=== PATIENT | female | born 2000 | race Caucasian/White ===

== ENCOUNTER 2022-11-17 07:20 | Outpatient (CLI) | payer OTHER, SELFPAY ==
[2022-11-17 07:50] LABS: Basophils Percent Auto 0.5 % (0.2-1.2); Eosinophils Absolute Auto 0.2 K/mm3 (0-0.3); Eosinophils Percent Auto 2.1 % (0-4.4); Hematocrit 45.7 % (37.0-47.0); Hemoglobin 14.3 g/dL (12.0-15.0); Immature Granulocyte Absolute 0.02 K/mm3 (0.00-0.031); Immature Granulocyte Percent A 0.3 % (0-0.5); Mean Corpuscular HGB Conc 31.3 g/dl (32-36); Mean Corpuscular Hemoglobin 27.7 pg (26-34); Mean Corpuscular Volume 88.6 fl (80-100); Mean Platelet Volume 9.2 fl (7.4-10.4); Monocytes Absolute Auto 0.7 K/mm3 (0.1-0.6); Monocytes Percent Auto 9.6 % (2.6-8.5); Neutrophils Absolute Auto 4.4 K/mm3 (1.3-6.7); Neutrophils Percent Auto 56.5 % (45.5-73.1); Platelet Count Result 285 k/mm3 (150-375); Red Blood Count 5.16 M/mm3 (4.2-5.4); Red Cell Distribution Width 12.8 % (11.5-14.5); White Blood Count 7.7 K/mm3 (4.5-10.0)
[2022-11-17 08:04] LABS: Hemoglobin A1C 5.7 % (<5.7)
[2022-11-17 08:52] LABS: Cholesterol 166 mg/dL (0-200); HDL Direct 37 mg/dL; Triglycerides 211 mg/dL (<150)
[2022-11-17 09:00] LABS: Beta HCG Quantitative < 2.39 mIU/ML
[2022-11-17 09:03] LABS: LDL Cholesterol Direct 92 mg/dL
[2022-11-17 12:11] LABS: Free T4 Free Thyroxine Reflex 1.18 ng/dL (0.78-2.19)
[2022-11-17 13:13] LABS: Total Triiodothyronine (T3) 1.85 NG/ML (0.97-1.69)
[2022-11-22 19:51] LABS: FSH 8.5 mIU/mL (***); Progesterone 0.5 ng/mL (***); Prolactin 10.3 ng/mL (***)
[2022-11-24 14:50] LABS: Anti Mullerian Hormone,Female 7.01 ng/mL (1.02-14.63)
[2022-11-24 19:14] LABS: DHEA-Sulfate 225 mcg/dL (51-321)
[2022-11-24 19:35] LABS: Insulin Level Total 27.2 uIU/mL (<=19.6)
[2022-11-25 16:12] LABS: Testosterone Free 9.1 pg/mL (0.1-6.4); Testosterone Total 41 ng/dL (2-45)
[2022-11-28 01:27] LABS: Estradiol, Ultrasensitive 31 pg/mL
[2022-12-05 07:59] LABS: Reference Lab Test Result 26.6
== END 2022-11-17 07:21 | disposition home or self-care (01) ==
LOC: ANHLAB 07:22
PROVIDERS: Visit Provider Obstetrics & Gynecology
DX: N92.6 Irregular menstruation, unspecified (principal); E66.01 Morbid (severe) obesity due to excess calories
CPT/HCPCS: 36415; 80061; 82627; 82670; 83001; 83036; 83498; 83525; 84144; 84146; 84402; 84403; 84439; 84443; 84480; 84702; 85025